=== PATIENT | female | born 1985 | race Hispanic/Latino ===

== ENCOUNTER 2023-12-16 13:24 | Emergency (ER) | payer OTHER, SELFPAY ==
[2023-12-16] MEDS ORDERED: Acetaminophen 500 MG TAB ONE (13:55)
[2023-12-16] MEDS ORDERED: Ketorolac Tromethamine 30 MG (1 mL) VIAL ONE (13:55)
== END 2023-12-16 15:45 | disposition home or self-care (01) ==
LOC: ERS 13:24
DX: S16.1XXA Strain of muscle, fascia and tendon at neck level, initial encounter (principal); S39.012A Strain of muscle, fascia and tendon of lower back, initial encounter; S29.012A Strain of muscle and tendon of back wall of thorax, initial encounter; Z55.6 Problems related to health literacy; V89.2XXA Person injured in unspecified motor-vehicle accident, traffic, initial encounter
CPT/HCPCS: 72072; 72100; 72125; 72170; 93005; 96374; J1885